=== PATIENT | male | born 1965 | race Caucasian/White ===

== ENCOUNTER 2018-05-19 15:47 | Inpatient (IN) | payer MEDICAID ==
[~2018-05-19] VITALS: Ht 170.2 cm; Wt 71.9 kg
[2018-05-19 16:36] LABS: BASOPHILS 0 % (0-2); EOSINOPHILS 0 % (0-7); HEMATOCRIT 23.9 % (42.0-54.0); HEMOGLOBIN 8.1 g/dL (13.5-17.5); IMMATURE GRANULOCYTES 0.3 % (0-5); LYMPHOCYTES 7.1 % (15-50); MCH 35.7 pg (26.0-34.0); MCHC 33.9 g/dL (31.0-37.0); MCV 105.3 fL (80.0-100.0); MEAN PLATELET VOLUME 9.5 fL (7.4-10.4); MONOCYTES 5.6 % (2-11); PLATELET COUNT 394 10x3/uL (130-400); RBC 2.27 10x6/uL (4.20-6.10); RDW 12.7 % (11.5-14.5); WBC 16.9 10x3/uL (4.8-10.8)
--- NOTE | 2018-05-19 16:50 | NUR ---
CONSENT FOR BLOOD SIGNED AT THIS TIME.
--- NOTE | 2018-05-19 17:40 | NUR ---
PATIENT TRANSPORTED TO 2301 VIA BED AT THIS TIME. HE WAS ACCOMPANIED BY ER STAFF. PT CONNECTED TO ICU MONITORING SYSTEM AND ADMISSION ASSESSMENT, QUICK START, MED REC, AND HISTORY ARE COMPLETE PER FLOWSHEETS. PT VSS, SIDE RAILS UP X2, AND CALL LIGHT IS WITHIN REACH. WILL CONTINUE CLOSE ICU MONITORING.
[2018-05-19] MEDS ORDERED: TYLENOL PM1 TAB (17:52)
--- NOTE | 2018-05-19 18:00 | NUR ---
PT REPORTS TAKING "UP TO 20 TYLENOL PM TO SLEEP AT NIGHT." WILL NOTIFY PHYSICIAN.
[2018-05-19 18:02] VITALS: BP 123/72
[2018-05-19 19:00] VITALS: BP 116/74
--- NOTE | 2018-05-19 19:25 | NUR ---
PT RECEIVED IN BED. ALERT AND ORIENTED. FIRST OF TWO UNITS OF PRBC STARTED AND VARIFIED WITH OUTGOING NURSE. INFUSION TO 18GA LEFT AC, STARTED AT 1914. PT TOLERATING WELL AT THIS TIME. NPO AT THIS TIME. CALL LIGHT WORKING BUT DOES NOT WORK TV. PT WITHOUT ANY COMPLAINTS OF PAIN AT THIS TIME. WILL CONTINUE TO OBSERVE.
--- NOTE | 2018-05-19 19:55 | NUR ---
DR MORALES ASSESSED PT. INFUSION CONTINUES WITHOUT ADVERSE EFFECT. WILL CONTINUE TO OBSERVE.
[2018-05-19 20:00] VITALS: BP 114/62
[2018-05-19 20:41] LABS: INR 1.14 (0.85-1.17); PROTIME 14.1 SECONDS (11.6-15.0)
[2018-05-19 20:54] LABS: % SATURATION 29 % (15-55); IRON 84 ug/dl (35-150); TOTAL IRON BIND CAPACITY 285 ug/dl (260-445); UNSAT IRON BIND CAPACITY 201 ug/dl (150-375)
--- NOTE | 2018-05-19 20:55 | NUR ---
DR KINGSLEY AT BEDSIDE.
[2018-05-19 21:00] VITALS: BP 138/77
[2018-05-19 21:10] LABS: FERRITIN 116 ng/mL (3-244); LIPASE 52 U/L (73-393)
[2018-05-19 22:00] VITALS: BP 108/59
[2018-05-19 23:00] VITALS: BP 131/73
--- NOTE | 2018-05-19 23:30 | NUR ---
PT WITH EYES OPEN WATCHING TV. CONTINUES BLOOD TRANSFUSION. SECOND UNIT TRANSFUSING. NO ADVERSE REACTIONS NOTED AT THIS TIME. WILL CONTINUE TO OBSERVE.
[2018-05-20] VITALS (25 sets, daily range): BP systolic 100–145; BP diastolic 58–94; Ht 170.2 cm; Wt 71.9 kg
[2018-05-20 00:37] LABS: HEMATOCRIT 27.1 % (42.0-54.0); HEMOGLOBIN 9.2 g/dL (13.5-17.5)
--- NOTE | 2018-05-20 01:32 | NUR ---
PT WITH EYES CLOSED AND CHEST RISING. NO S/S OF DISTRESS. WILL CONTINUE TO OBSERVE.
--- NOTE | 2018-05-20 03:25 | NUR ---
REASSESSMENT COMPLETED, SEE FLOW SHEET. WILL CONTINUE TO OBSERVE.
[2018-05-20 04:17] LABS: BASOPHILS 0 % (0-2); EOSINOPHILS 0 % (0-7); HEMATOCRIT 27.5 % (42.0-54.0); HEMOGLOBIN 9.3 g/dL (13.5-17.5); IMMATURE GRANULOCYTES 0.5 % (0-5); LYMPHOCYTES 10.6 % (15-50); MCH 32.7 pg (26.0-34.0); MCHC 33.8 g/dL (31.0-37.0); MEAN PLATELET VOLUME 9.4 fL (7.4-10.4); MONOCYTES 9.9 % (2-11); RDW 18.3 % (11.5-14.5); WBC 15.8 10x3/uL (4.8-10.8)
[2018-05-20 04:28] LABS: INR 1.27 (0.85-1.17); PROTIME 15.3 SECONDS (11.6-15.0)
[2018-05-20 04:29] LABS: MCV 96.8 fL (80.0-100.0); PLATELET COUNT 292 10x3/uL (130-400); RBC 2.84 10x6/uL (4.20-6.10)
[2018-05-20 04:48] LABS: ALBUMIN 2.7 g/dL (3.4-5.0); ALKALINE PHOSPHATASE 36 U/L (46-116); ALT (SGPT) 52 U/L (10-68); AMYLASE - SERUM 27 U/L (25-115); BILIRUBIN - DIRECT 0.12 mg/dL (0.00-0.30); BILIRUBIN - INDIRECT 0.38 mg/dL (0.00-1.00); CALC OSMOLALITY 279 mosm/kg (275-300); CALCIUM 7.2 mg/dL (8.5-10.1); CARBON DIOXIDE 22.5 mmol/L (21.0-32.0); CHLORIDE - SERUM 105 mmol/L (98-107); CHOL - HDL RATIO 4.2 ratio (2.3-4.9); CHOLESTEROL, TOTAL 121 mg/dL (0-200); CREATININE - SERUM 0.7 mg/dL (0.6-1.3); GLUCOSE 107 mg/dL (74-106); HDL CHOLESTEROL 29 mg/dL (32-96); LDL CHOLESTEROL 58 mg/dL (0-100); LIPASE 64 U/L (73-393); POTASSIUM - SERUM 3.5 mmol/L (3.5-5.1); PROTEIN - SERUM 5.5 g/dL (6.4-8.2); SODIUM 139 mmol/L (136-145); TRIGLYCERIDE 170 mg/dL (30-200); UREA NITROGEN 17 mg/dL (7-18); eGFR NON AFRICAN AMERICAN > 90 mL/min (90-120)
--- NOTE | 2018-05-20 05:30 | NUR ---
IMAGING AT BEDSIDE WITH ULTRASOUND. NO CONCERNS NOTED. WILL CONTINUE TO OBSERVE.
--- NOTE | 2018-05-20 07:20 | NUR ---
SHIFT ASSESSMENT COMPLETE, PT IS ALERT AND ORIENTED, ALL PPP, VSS, CALL LIGHT IN REACH
--- NOTE | 2018-05-20 09:20 | NUR ---
NO VISITORS AT THIS TIME, WILL CON'T TO MONITOR
--- NOTE | 2018-05-20 11:00 | NUR ---
REASSESSMENT COMPLETE, NO CHANGES NOTED, ALL PPP, VSS, CALL LIGHT IN REACH
--- NOTE | 2018-05-20 15:20 | NUR ---
REASSESSMENT COMPLETE PER FLOW SHEET. VSS. NO NEW CHANGES WILL CONTINUE TO MONITOR
--- NOTE | 2018-05-20 17:31 | NUR ---
DR KINGSLEY EGD AT BEDSIDE.
--- NOTE | 2018-05-20 18:50 | MORECARE ---
CASE MANAGEMENT DISCHARGE SUMMARY PATIENT: GERONIMO YUAN UNIT: [id number] ADM DATE: 05/19/18 AGE: 52 : 61 SEX: M ROOM/BED: D.2301 AUTHOR: VY GUNN PHYSICIAN: REFERRING PHYSICIAN: BRITT MORALES MD DATE OF SERVICE: 05/20/18 Discharge Plan Patient Name: GERONIMO YUAN [facility] [facility] 1965 Planned Disposition: Home Anticipated Discharge Date: Discharge Date: Expected LOS: Initial Reviewer: [email or web address] Initial Review Date: 05/20/2018 Generated: 05/20/18 7:50 pm DCPIA - Discharge Planning Initial Assessment Updated by [email or web address]: Alanna Gray on 05/20/18 6:50 pm * Is the patient Alert and Oriented? Yes * How many steps to enter\exit or inside your home? * PCP NO PCP * [facility] * Preadmission Environment Home Alone * ADLs Independent * Equipment None * List name and contact numbers for known caregivers / representatives who currently or will assist patient after discharge: SURESH PRITCHETT [facility] [phone] * Verbal permission to speak to the caregivers and representatives has been obtained from the patient. N/A * Community resources currently utilized None * Additional services required to return to the preadmission environment? No * Can the patient safely return to the preadmission environment? Yes * Has this patient been hospitalized within the prior 30 days at any hospital? No Patient Name: GERONIMO YUAN Page [id number] at 1850 All edits/amendments must be made on the electronic document DICTATION DATE: 05/20/181848 EEG TECHNOLOGIST: SUPRIYA 05/20/181848 RPT#: [id number] DC DATE: STATUS: ADM IN [facility] [address] [place] [address] END OF REPORT
--- NOTE | 2018-05-20 18:56 | MORECARE ---
CASE MANAGEMENT DISCHARGE SUMMARY PATIENT: GERONIMO YUAN UNIT: [id number] ADM DATE: 05/19/18 AGE: 52 : 61 SEX: M ROOM/BED: D.2301 AUTHOR: VELIADOC PHYSICIAN: REFERRING PHYSICIAN: BRITT MORALES MD DATE OF SERVICE: 05/20/18 Discharge Plan Patient Name: GERONIMO YUAN Facility: [facility]:[place] : 1965 Planned Disposition: Home Anticipated Discharge Date: Discharge Date: Expected LOS: Initial Reviewer: [email or web address] Initial Review Date: 05/20/2018 Generated: 05/20/18 7:56 pm Comments DCP- Discharge Planning Updated by [email or web address]: Alanna Gray on 05/20/18 5:[address] LATE ENTRY 05/20/18 @ 1200 Patient Name: GERONIMO YUAN Admission Status: ER Accout number: [id number] Admission Date: 05-19-2018 : 1965 Admission Diagnosis: Attending: BRITT MORALES Current LOS: 1 Anticipated DC Date: Planned Disposition: Home Primary Insurance: [place] [employer] [place] Discharge Planning Comments: CM met with patient at bedside after obtaining verbal consent. Patient states he plans on returning home after discharge. Patient states he will have family transport him home via private vehicle. Patient denies any discharge needs at this time. CM will continue to follow and assist as needed for discharge planning / needs. Agricultural Produce Washer: Alanna Gray DCPIA - Discharge Planning Initial Assessment Updated by [email or web address]: Alanna Gray on 05/20/18 6:50 pm * Is the patient Alert and Oriented? Yes * How many steps to enter\exit or inside your home? * PCP NO PCP * [facility] * Preadmission Environment Home Alone * ADLs Independent * Equipment None * List name and contact numbers for known caregivers / representatives who currently or will assist patient after discharge: SURESH PRITCHETT - [facility]- [phone] * Verbal permission to speak to the caregivers and representatives has been obtained from the patient. N/A * Community resources currently utilized None * Additional services required to return to the preadmission environment? No * Can the patient safely return to the preadmission environment? Yes * Has this patient been hospitalized within the prior 30 days at any hospital? No Last DP export: 05/20/18 5:50 pm Patient Name: GERONIMO YUAN Page [id number] at 1856 All edits/amendments must be made on the electronic document DICTATION DATE: 05/20/181855 HAIR SPRING WINDER: SUPRIYA 05/20/181855 RPT#: [id number] DC DATE: STATUS: ADM IN [facility] [address] [place] [address] END OF REPORT
--- NOTE | 2018-05-20 19:12 | NUR ---
PT RECIEVED IN BED RESTING WITH EYES CLOSED AND CHEST RISING. EASILY AWOKEN TO VERBAL STIMULI. VITAL SIGNS STABLE. NO CONCERNS MADE KNOWN AT THIS TIME. WILL CONTINUE TO OBSERVE.
--- NOTE | 2018-05-20 21:25 | NUR ---
PT RECEIVED MEDICATIONS PER MAR. TOLERATED WELL. PT COMPLAINED OF HEADACHE WITH PRN MORPHINE GIVEN PER MAR. WILL CONTINUE TO OBSERVE.
--- NOTE | 2018-05-20 23:33 | NUR ---
PT WITH EYES CLOSED AND CHEST RISING. EASILY AWOKEN TO ENTRY. REASSESMENT COMPLETE, SEE FLOW SHEET. WILL CONTINUE TO OBSERVE.
[2018-05-21] VITALS (26 sets, daily range): BP systolic 100–135; BP diastolic 53–91
--- NOTE | 2018-05-21 01:49 | NUR ---
PT RESTING WITH EYES CLOSED AND CHEST RISING. NO S/S OF DISTRESS. WILL CONTINUE TO OBSERVE.
--- NOTE | 2018-05-21 03:45 | NUR ---
REASSESSMENT COMPLETED, SEE FLOW SHEET.
[2018-05-21 04:58] LABS: BASOPHILS 0 % (0-2); EOSINOPHILS 0 % (0-7); HEMATOCRIT 25.6 % (42.0-54.0); HEMOGLOBIN 8.7 g/dL (13.5-17.5); IMMATURE GRANULOCYTES 0.4 % (0-5); LYMPHOCYTES 13.1 % (15-50); MCH 33.2 pg (26.0-34.0); MCV 97.7 fL (80.0-100.0); MEAN PLATELET VOLUME 9.3 fL (7.4-10.4); MONOCYTES 11.3 % (2-11); NEUTROPHILS 75.2 % (40-80); PLATELET COUNT 298 10x3/uL (130-400); RBC 2.62 10x6/uL (4.20-6.10); RDW 19.3 % (11.5-14.5)
[2018-05-21 05:16] LABS: WBC 11.3 10x3/uL (4.8-10.8)
[2018-05-21 05:25] LABS: ALBUMIN 2.5 g/dL (3.4-5.0); ALKALINE PHOSPHATASE 38 U/L (46-116); ALT (SGPT) 45 U/L (10-68); BILIRUBIN - TOTAL 0.31 mg/dL (0.2-1.3); CALCIUM 7.2 mg/dL (8.5-10.1); CARBON DIOXIDE 24.6 mmol/L (21.0-32.0); CHLORIDE - SERUM 104 mmol/L (98-107); CREATININE - SERUM 0.7 mg/dL (0.6-1.3); GLUCOSE 96 mg/dL (74-106); POTASSIUM - SERUM 3.4 mmol/L (3.5-5.1); PROTEIN - SERUM 5.3 g/dL (6.4-8.2); SODIUM 138 mmol/L (136-145); eGFR NON AFRICAN AMERICAN > 90 mL/min (90-120)
[2018-05-21 05:27] LABS: CALC OSMOLALITY 272 mosm/kg (275-300); UREA NITROGEN 5 mg/dL (7-18)
[2018-05-21 05:28] LABS: INR 1.12 (0.85-1.17); PROTIME 13.9 SECONDS (11.6-15.0)
--- NOTE | 2018-05-21 07:16 | NUR ---
REPORT RECEIVED. ASSESSMENT COMPLETE PER FLOW SHEET. VSS NO NEW CHANGES PT SLEEPING COMFORTABLY WILL CONTINUE TO MONITOR
[2018-05-21 08:22] LABS: FOLATE (FOLIC ACID) - SERUM 9.8 ng/mL (>3.0)
[2018-05-21 09:17] LABS: HEPATITIS C ANTIBODY <0.1 S/CO RAT (0.0-0.9)
--- NOTE | 2018-05-21 09:50 | NUR ---
L AC PIV LEAKING AROUND INSERTION SITE. REMOVED CATH TIP INTACT. L WRIST 20G PIV INSERTED UPON 1 ATTEMPT WITHOUT DIFFICULTY. NEEDS MET
--- NOTE | 2018-05-21 11:11 | NUR ---
REASSESSMENT COMPLETE PER FLOW SHEET. VSS. NO NEW CHANGES WILL CONTINUE TO MONITOR
--- NOTE | 2018-05-21 13:20 | NUR ---
PT RESTING COMFORTABLY VSS NO NEW CHANGES WILL CONTINUE TO MONTIOR
--- NOTE | 2018-05-21 15:04 | NUR ---
REASSESSMENT COMPLETE PER FLOW SHEET. VSS. IR AT BEDSIDE. LEFT VIA WHEELCHAIR NEEDS MET
--- NOTE | 2018-05-21 16:40 | NUR ---
PT BACK FROM IR DENIES NEEDS DINNER GIVEN REFUSED. LEFT AT BEDSIDE. VSS WILL CONTINUE TO MONITOR
--- NOTE | 2018-05-21 17:40 | NUR ---
PT ASSISTED UP TO BEDSIDE COMMODE. DENIES FURTHER NEEDS WILL CONTINUE TO MONITOR
--- NOTE | 2018-05-21 19:00 | NUR ---
Received patient resting in bed with eyes open, assessment completed per flowsheet. Patient denies pain or other needs at this time, all VSS. Fall precautions in place, patient ambulates without assist. Call light/bed table in reach, will continue to monitor.
--- NOTE | 2018-05-21 19:25 | NUR ---
Patient BM in bedside, small semi-formed stool with scant pink noted on paper. Patient denies pain with BM, no further needs and will continue to monitor.
--- NOTE | 2018-05-21 21:00 | NUR ---
Patient sleeping in bed with eyes closed, HS meds given without difficulty. no further needs at this time, will continue to monitor.
--- NOTE | 2018-05-21 23:00 | NUR ---
Reassessment completed per flowsheet, patient sleeping in bed with eyes closed. States abdominal/head pain 3/10, will provide PRN medication when available. No melenic stools noted at this time, no further needs at this time. All VSS and will continue to monitor.
[2018-05-22] VITALS (17 sets, daily range): BP systolic 98–143; BP diastolic 41–97
--- NOTE | 2018-05-22 01:00 | NUR ---
Patient sleeping in bed with eyes closed, no s/s of distress at this time. Patient states headache 10/21, PRN medication already provided and will reassess. No further needs at this time, all VSS and will continue to monitor.
--- NOTE | 2018-05-22 02:52 | NUR ---
Reassessment completed per flowsheet, patient sleeping in bed with eyes closed. No changes from previous assessment, no further BM at this time. All VSS and will continue to monitor.
[2018-05-22 04:31] LABS: BASOPHILS 0.1 % (0-2); EOSINOPHILS 0.5 % (0-7); IMMATURE GRANULOCYTES 0.4 % (0-5); LYMPHOCYTES 15.7 % (15-50); MCHC 34.3 g/dL (31.0-37.0); MCV 96.4 fL (80.0-100.0); MEAN PLATELET VOLUME 9.7 fL (7.4-10.4); MONOCYTES 12.1 % (2-11); NEUTROPHILS 71.2 % (40-80); PLATELET COUNT 355 10x3/uL (130-400); RDW 18.8 % (11.5-14.5); WBC 12.2 10x3/uL (4.8-10.8)
[2018-05-22 04:36] LABS: CALC OSMOLALITY 276 mosm/kg (275-300); CALCIUM 7.9 mg/dL (8.5-10.1); CARBON DIOXIDE 28.1 mmol/L (21.0-32.0); CHLORIDE - SERUM 103 mmol/L (98-107); CREATININE - SERUM 0.8 mg/dL (0.6-1.3); GLUCOSE 101 mg/dL (74-106); POTASSIUM - SERUM 3.5 mmol/L (3.5-5.1); SODIUM 140 mmol/L (136-145); eGFR NON AFRICAN AMERICAN > 90 mL/min (90-120)
[2018-05-22 04:38] LABS: HEMATOCRIT 32.4 % (42.0-54.0); HEMOGLOBIN 11.1 g/dL (13.5-17.5); RBC 3.36 10x6/uL (4.20-6.10)
[2018-05-22 04:51] LABS: UREA NITROGEN 7 mg/dL (7-18)
--- NOTE | 2018-05-22 05:00 | NUR ---
Patient resting in bed with eyes closed, no s/s of distress at this time. Denies needs at this time, all VSS and will continue to monitor.
--- NOTE | 2018-05-22 07:15 | NUR ---
REPORT RECIEVED. ASSESSMENT COMPLETE PER FLOW SHEET. VSS. PT RESTING COMFORTABLY WILL CONTINUE TO MONITOR
[2018-05-22] MEDS ORDERED: SYNTHROID125 MCG PO (07:49)
[2018-05-22] MEDS ORDERED: ZESTRIL20 MG PO (07:50)
[2018-05-22] MEDS ORDERED: TENORMIN25 MG PO (07:50)
[2018-05-22] MEDS ORDERED: NORVASC5 MG PO (07:51)
--- NOTE | 2018-05-22 09:20 | NUR ---
ATE 100% BREAKFAST. DR YUAN AND DR KINGSLEY GIVEN UDPATE. ORDERS RECEIVED. FOR TRANFSER. WILL CONTINUE TO MONITOR
--- NOTE | 2018-05-22 09:37 | NUR ---
Nutrition follow-up: Diet advanced to regular soft bland PO intake 100% Labs reviewed Wt: 159# RDN following.
--- NOTE | 2018-05-22 11:19 | NUR ---
REASSESSMENT COMPLETE PER FLOW SHEET. VSS. NO NEW CHANGES PT SLEEPING COMFORTABLY WILL CONTINUE TO MONITOR
--- NOTE | 2018-05-22 13:10 | NUR ---
PT SLEEPING COMFORTABLY VSS NO NEW CHANGES WILL CONTNIUE TOMONITOR
--- NOTE | 2018-05-22 17:14 | NUR ---
PT ATE 75% DINNER
--- NOTE | 2018-05-22 17:45 | NUR ---
PT ARRIVED ON FLOOR VIA WHEELCHAIR. PT LYING IN BED CL IN REACH. PT DENIES NEEDS OR PAIN. IV RUNNING IN LEFT WRIST AND RIGHT WRIST. TM
--- NOTE | 2018-05-22 19:06 | NUR ---
PATIENT IS RESTING IN HIS BED. DENIES ANY NEEDS. CALL LIGHT IN REACH.
--- NOTE | 2018-05-22 23:05 | NUR ---
PATIENT RESTING IN HIS BED. DENIES ANY NEEDS. VITAL SIGNS STABLE. BED IS DOWN LOW WITH SIDE RAILS UP X2. CALL LIGHT IN REACH.
--- NOTE | 2018-05-23 03:02 | NUR ---
PATIENT IS SLEEPING. BED IS DOWN LOW WITH SIDE RAILS UP X2. CALL LIGHT IS IN REACH.
[2018-05-23 04:00] VITALS: BP 123/77
[2018-05-23 07:41] LABS: CALC OSMOLALITY 278 mosm/kg (275-300); CALCIUM 8.7 mg/dL (8.5-10.1); CARBON DIOXIDE 28.4 mmol/L (21.0-32.0); CHLORIDE - SERUM 103 mmol/L (98-107); CREATININE - SERUM 0.8 mg/dL (0.6-1.3); GLUCOSE 91 mg/dL (74-106); POTASSIUM - SERUM 3.2 mmol/L (3.5-5.1); SODIUM 141 mmol/L (136-145); UREA NITROGEN 8 mg/dL (7-18); eGFR NON AFRICAN AMERICAN > 90 mL/min (90-120)
--- NOTE | 2018-05-23 07:55 | NUR ---
PT SITTING UP FOR BREAKFAST, DENIES NEEDS. WCTM.
[2018-05-23 08:11] LABS: HEMATOCRIT 33.9 % (42.0-54.0); HEMOGLOBIN 11.9 g/dL (13.5-17.5); LYMPHOCYTES 17.3 % (15-50); MCH 34.1 pg (26.0-34.0); MCHC 35.1 g/dL (31.0-37.0); MCV 97.1 fL (80.0-100.0); MEAN PLATELET VOLUME 9.7 fL (7.4-10.4); NEUTROPHILS 66.8 % (40-80); PLATELET COUNT 369 10x3/uL (130-400); RBC 3.49 10x6/uL (4.20-6.10); RDW 18.5 % (11.5-14.5); WBC 9.7 10x3/uL (4.8-10.8)
[2018-05-23 09:34] VITALS: BP 122/84
[2018-05-23 12:41] VITALS: BP 124/84
[2018-05-23] MEDS ORDERED: PROTONIX40 MG PO (14:13)
[2018-05-23] MEDS ORDERED: CARAFATE1 G PO (14:13)
[2018-05-23 16:42] VITALS: BP 137/83
--- NOTE | 2018-05-23 16:53 | NUR ---
PT DISCHARGE INSTRUCTIONS REVIEWED. PT STATES UNDERSTANDING. PT STATES HE DOES NOT HAVE A RIDE UNTIL AFTER DINNER.
--- NOTE | 2018-05-23 17:50 | NUR ---
PT BROTHER HERE TO PAY PER CLICK STRATEGIST PT. PT ESCORTED OUT BY HOSPITAL STAFF.
--- NOTE | 2018-05-24 15:55 | MORECARE ---
CASE MANAGEMENT DISCHARGE SUMMARY PATIENT: GERONIMO YUAN UNIT: [id number] ADM DATE: 05/19/18 AGE: 52 : 61 SEX: M ROOM/BED: D.1209 AUTHOR: VELIADOC PHYSICIAN: REFERRING PHYSICIAN: BRITT MORALES MD DATE OF SERVICE: 05/24/18 Discharge Plan Patient Name: GERONIMO YUAN Facility: [facility]:[place] : 1965 Planned Disposition: Home Anticipated Discharge Date: Discharge Date: 05/23/2018 Expected LOS: Initial Reviewer: [email or web address] Initial Review Date: 05/20/2018 Generated: 05/24/18 4:54 pm Comments DCP- Discharge Planning Updated by [email or web address]: Alanna Gray on 05/20/18 5:[address] LATE ENTRY 05/20/18 @ 1200 Patient Name: GERONIMO YUAN Admission Status: ER Accout number: [id number] Admission Date: 05-19-2018 : 1965 Admission Diagnosis: Attending: BRITT MORALES Current LOS: 1 Anticipated DC Date: Planned Disposition: Home Primary Insurance: [place] [employer] [place] Discharge Planning Comments: CM met with patient at bedside after obtaining verbal consent. Patient states he plans on returning home after discharge. Patient states he will have family transport him home via private vehicle. Patient denies any discharge needs at this time. CM will continue to follow and assist as needed for discharge planning / needs. Belt Repairer: Alanna Gray DCPIA - Discharge Planning Initial Assessment Updated by [email or web address]: Alanna Gray on 05/20/18 6:50 pm * Is the patient Alert and Oriented? Yes * How many steps to enter\exit or inside your home? * PCP NO PCP * [facility] [place] * Preadmission Environment Home Alone * ADLs Independent * Equipment None * List name and contact numbers for known caregivers / representatives who currently or will assist patient after discharge: SURESH PRITCHETT - SISTER- [phone] * Verbal permission to speak to the caregivers and representatives has been obtained from the patient. N/A * Community resources currently utilized None * Additional services required to return to the preadmission environment? No * Can the patient safely return to the preadmission environment? Yes * Has this patient been hospitalized within the prior 30 days at any hospital? No Last DP export: 05/20/18 5:56 pm Patient Name: GERONIMO YUAN Page [id number] at 1555 All edits/amendments must be made on the electronic document DICTATION DATE: 05/24/181553 SLITTER AND REWINDER MACHINE OPERATOR: SUPRIYA 05/24/181553 RPT#: [id number] DC DATE:05/23/18 STATUS: DIS IN [facility] [address] [place] [address] END OF REPORT
== END 2018-05-23 17:52 | disposition home or self-care (01) | DRG 381 ==
LOC: D.ER 15:47 → D.ICU 16:58 → D.ER 17:09 → D.M3 05-22 17:45
PROVIDERS: Emergency Medicine; Family Medicine; Internal Medicine Gastroenterology; ADMIT Internal Medicine Nephrology
PROC: 0DB78ZX Excision of Stomach, Pylorus, Via Natural or Artificial Opening Endoscopic, Diagnostic (ICD-10-PCS; 2018-05-20)
PROC: 0DB58ZX Excision of Esophagus, Via Natural or Artificial Opening Endoscopic, Diagnostic (ICD-10-PCS; principal; 2018-05-20 17:00)
DX: K22.11 Ulcer of esophagus with bleeding (principal); D62 Acute posthemorrhagic anemia; K26.4 Chronic or unspecified duodenal ulcer with hemorrhage; D53.9 Nutritional anemia, unspecified; K44.9 Diaphragmatic hernia without obstruction or gangrene; R55 Syncope and collapse; K21.9 Gastro-esophageal reflux disease without esophagitis; K25.4 Chronic or unspecified gastric ulcer with hemorrhage; K29.61 Other gastritis with bleeding